=== PATIENT | male | born 1965 | race Caucasian/White ===

== ENCOUNTER 2016-07-16 12:51 | Emergency (ER) | payer BC ==
[2016-07-16 13:08] LABS: Hematocrit 43.7 % (42.0-52.0); Hemoglobin 14.8 gm/dL (13.5-18.0); Mean Cell Volume 90.9 fl (78-100); Mean Corpuscular Hemoglobin 30.8 pg (27-31); Mean Corpuscular Hgb Conc 33.9 g/dl (32-36); Neutrophil # 7.7 K/mm3 (1.3-6.0); Neutrophil % 59.2 % (42-75.0); Platelet Count 282 K/mm3 (150-450); Red Blood Count 4.81 M/mm3 (4.7-6.0); Red Cell Distribution Width 13.2 % (11.5-14.0)
[2016-07-16] MEDS ORDERED: ASPIRIN 81 MG TAB.CHEW PO ONE (13:09)
[2016-07-16] MEDS ORDERED: MORPHINE SULFATE 10 MG/ML SYRG IV ONE (13:10)
[2016-07-16] MEDS ORDERED: ASPIRIN 81 MG TAB.CHEW ONE (13:14)
[2016-07-16] MEDS ORDERED: MORPHINE SULFATE 10 MG/ML SYRG ONE (13:14)
[2016-07-16 13:18] LABS: INR 1.03 INR (0.90-1.10); Partial Thrombolplastin Time 31.5 Seconds (24-32); Prothrombin Time (Patient) 10.7 Seconds (9.4-11.4)
[2016-07-16] MEDS ORDERED: ONDANSETRON HCL/PF 2 MG/ML VIAL IV ONE (13:22)
--- NOTE | 2016-07-16 13:22 | ERNOTE ---
Chest Pain/Cardiac HPI Date of Service: 07/16/16 Chief Complaint: Chest Pain Time Seen by Provider: 07/16/16 13:07 Source: patient Exam Limitations: no limitations Immunizations: IMMUNIZATION HX Immunizations Up to Date Yes History of Influenza Vaccine No Hx Pneumococcal Vaccination No Allergies/Adverse Reactions: Allergies amoxicillin Allergy (Verified 07/16/16 12:55) Home Medications: HOME MEDICATIONS metFORMIN HCL [Glumetza] 500 mg PO BID 01/08/14 [Last Taken 01/08/14 06:00] Gabapentin [Neurontin] 1,000 mg PO BID 09/12/14 [Last Taken Unknown] Levofloxacin [Levaquin] 500 mg PO DAILY #10 tablet 07/16/16 [Last Taken Unknown] Narrative: Sudden onset of right sided anterior chest pain while at rest 1 hour travel pta. The pain is quite severe. It is constant. He took 1 baby aspirin at home but nothing else for pain. Not have a cardiac history. He is a one pack per day smoker. He did spend an hour and the phone with the [employer] this morning. Denies any injury. He feels unwell. No nausea or vomiting. Timing: constant Severity/Quality: moderate, pressure Location: other - right chest Chest Pain Radiation: no radiation Activities at Onset: emotional stress, rest Modifying Factors - Improves: Present: nothing Modifying Factors - Worsens: Present: nothing Nitro Today/Relief: no nitro taken today Aspirin Treatment Today: 81 mg x 1 Associated Symptoms: Present: denies symptoms Prior Chest Pain/Cardiac Workup: Reports: no prior cardiac workup Review of Systems - Review of Systems Constitutional: Present: no symptoms reported EYE: Present: no symptoms reported Respiratory: Present: no symptoms reported Cardiology: Present: chest pain Gastrointestinal/Abdominal: Present: no symptoms reported Musculoskeletal: Present: no symptoms reported Skin: Present: no symptoms reported - Patient's Past Medical History Patient History - Medical: Diabetes Type 2, Kidney stone, Other Patient History - Cardiac/Respiratory: CVA/Stroke Patient History - Cancer: No Hx of Cancer Patient History - Surgical Procedures: Other Patient History - Other: None - Social History Living Situations: home Abuse History: No History of abuse Psych History: No pertinent hx Smoking Status: Current every day smoker Alcohol Use: occasionally Drug Use: none - Immunizations Immunizations Up to Date: Yes Hx Pneumococcal Vaccination: No History of Influenza Vaccine: No Physical Exam - Physical Exam General Appearance: Present: moderate distress Eye Exam: Normal inspection: bilateral, PERRL: bilateral Neck: Present: normal inspection, supple Respiratory: Present: no respiratory distress, no accessory muscle use, lungs clear Cardiovascular/Chest: Present: regular rate, rhythm Gastrointestinal/Abdominal: Present: normal bowel sounds, nontender ED Progress - Results and Orders Patient's Lab Results:: I have reviewed the patient's lab results. - Vital Signs Patient's Vital Signs:: I have reviewed the patient's vital signs. Vital Signs: Vital Signs 07/16/16 12:52 Pulse Rate 71 Respiratory 16 Rate Blood Pressure 134/68 O2 Sat by Pulse 96 Oximetry - EKG EKG: NSR, RBBB - incomplete, other - no acute ST-T changes EKG read: Reviewed by me - X-Ray X-Ray #1 X-Ray: chest Interpretation: Reviewed by me X-ray Comments: possible infiltrate - Progress/Reassessment Chief Complaint: Chest Pain Progress:: Improved Plan - Plan Plan: Home. Rest. Levaquin. Ibuprofen. F/U 10 days. Departure - Departure Clinical Impression: Pleurisy, Right lower lobe pneumonia, Chest pain Disposition: Home self-care Condition: Good Instructions: Pleurisy, Community-Acquired Pneumonia, Adult, [id number] Additional Instructions: Follow up in 10 days. Take ibuprofen 400-600 mg 4 times per day. Finish you antibiotic. Prescriptions: Levofloxacin [Levaquin] 500 mg PO DAILY #10 tablet
[2016-07-16] MEDS ORDERED: ONDANSETRON HCL/PF 2 MG/ML VIAL ONE (13:23)
[2016-07-16 13:30] LABS: Troponin I Less than 0.017 ng/ml (0.00-0.10)
[2016-07-16 13:31] LABS: ALT 31 U/L (19-67); AST 21 U/L (0-48); Albumin * 3.7 gm/dl (3.4-5.0); Alkaline Phosphatase * 79 U/L (50-170); Anion Gap 11.7 mmol/L (6.8-13.8); BUN/Creatinine Ratio 15.1 (9.0-21.6); Bilirubin, Total 0.4 mg/dL (0.0-1.1); Blood Urea Nitrogen 16 mg/dL (6-23); Ca. Corrected For Albumin 8.8 mg/dL (8.4-10.2); Calcium * 8.9 mg/dL (7.9-10.9); Carbon Dioxide 28.8 mmol/L (24-32.6); Chloride 104 mmol/L (97-106); Glucose * 97 mg/dL (70-110); Potassium 4.5 mmol/L (3.4-4.6); Sodium 140 mmol/L (132-142); Total Protein 7.6 gm/dL (6.2-8.2)
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
[2016-07-16 15:00] VITALS: BP 133/78
[2016-07-16] MEDS ORDERED: KETOROLAC TROMETHAMINE 30 MG/ML VIAL IV ONE (15:11)
[2016-07-16] MEDS ORDERED: KETOROLAC TROMETHAMINE 30 MG/ML VIAL ONE (15:13)
[2016-07-16 15:17] LABS: Cocaine Ur Negative (NEGATIVE); Urine Barbiturate Negative (NEGATIVE); Urine Benzodiazepines Negative (NEGATIVE); Urine Opiates Positive (NEGATIVE); Urine PCP Negative (NEGATIVE); Urine THC Negative (NEGATIVE)
[2016-07-16 15:21] LABS: Urine Appearance Clear; Urine Bacteria None Seen; Urine Bilirubin Negative (NEGATIVE); Urine Blood 10 /ul (NEGATIVE); Urine Color Yellow; Urine Ketone Negative (NEGATIVE); Urine Nitrite Negative (NEGATIVE); Urine Protein Negative (NEGATIVE); Urine RBC 0-5 /hpf (0-5); Urine Urobilinogen Normal (NORMAL); Urine WBC 0-5 /hpf (0-5)
== END 2016-07-16 15:36 | disposition home or self-care (01) ==
LOC: ER 12:51
DX: R09.1 Pleurisy (principal); J18.8 Other pneumonia, unspecified organism; Z72.0 Tobacco use; R07.9 Chest pain, unspecified

== ENCOUNTER 2017-01-13 23:31 | Emergency (ER) | payer BC ==
[2017-01-14] MEDS ORDERED: HYDROmorphone HCL 1 MG/ML DISP.SYRIN SC ONE (00:02)
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
[2017-01-14] MEDS ORDERED: HYDROmorphone HCL 1 MG/ML DISP.SYRIN ONE (00:44)
[2017-01-14 02:09] VITALS: BP 121/88
== END 2017-01-14 01:45 | disposition home or self-care (01) ==
LOC: ER 23:31
DX: S20.212A Contusion of left front wall of thorax, initial encounter (principal); S20.211A Contusion of right front wall of thorax, initial encounter; V00.131A Fall from skateboard, initial encounter; E11.9 Type 2 diabetes mellitus without complications; Z87.442 Personal history of urinary calculi

== ENCOUNTER 2019-02-04 21:44 | Observation (INO) ==
[2019-02-04] MEDS ORDERED: NORMAL SALINE 1,000 ML IV ONE (21:52)
[2019-02-04 22:07] LABS: Hematocrit 45.5 % (42.0-52.0); Hemoglobin 15.8 gm/dL (13.5-18.0); Mean Cell Volume 93.4 fl (78-100); Mean Corpuscular Hemoglobin 32.4 pg (27-31); Mean Corpuscular Hgb Conc 34.7 g/dl (32-36); Neutrophil # 4.9 K/mm3 (1.3-6.0); Neutrophil % 42.8 % (42-75.0); Platelet Count 284 K/mm3 (150-450); Red Blood Count 4.87 M/mm3 (4.7-6.0); Red Cell Distribution Width 13.1 % (11.5-14.0); White Blood Count 11.5 K/mm3 (4.0-10.5)
[2019-02-04 22:20] LABS: Prothrombin Time (Patient) 10.4 Seconds (9.1-10.7)
[2019-02-04 22:22] LABS: INR 1.05 INR (0.92-1.08); Partial Thrombolplastin Time 27.6 Seconds (24-32)
--- NOTE | 2019-02-04 22:26 | ERNOTE ---
Neuro HPI ER Record Date of Service: 02/04/19 Presenting Symptoms: weakness, numbness, parasthesia, facial droop, difficulty walking Time Seen by Provider: 02/04/19 21:49 Source: patient Exam Limitations: no limitations Immunizations: IMMUNIZATION HX Immunizations Up to Date Yes History of Influenza Vaccine No Hx Pneumococcal Vaccination No Allergies/Adverse Reactions: Allergies Allergy/AdvReac Type Severity Reaction Status Date / Time amoxicillin Allergy Verified 01/13/17 23:54 Home Medications: HOME MEDICATIONS metFORMIN HCL [Glumetza] 500 mg PO BID 01/08/14 [Last Taken 01/08/14 06:00] Gabapentin [Neurontin] 1,000 mg PO BID 09/12/14 [Last Taken Unknown] HYDROcodone/ACETAMINOPHEN [Ray 5-325] 1 each PO Q4H PRN #25 tablet 01/14/17 [Last Taken Unknown] Atorvastatin Calcium 80 mg PO DAILY 02/04/19 [Last Taken Unknown] Clopidogrel Bisulfate [Clopidogrel] 75 mg PO DAILY 02/04/19 [Last Taken Unknown] Levothyroxine Sodium [Synthroid] 25 mcg PO DAILY 02/04/19 [Last Taken Unknown] Propranolol HCl 80 mg PO BID 02/04/19 [Last Taken Unknown] - History of Present Illness Narrative: 53-year-old male states about 1 hour ago his dog came over and nudged him while he was a sleep and he felt numbness and tingling to the left side of his face arms and legs he had noticed his speech was a little thick and that he was having difficulty moving his arm and legs patient has a history of a CVA in 2015 had a reoccurrence in 2016 for which she was given TPA at the time he arrived to the emergency room with a left distinct left facial droop pupils are pinpoint. Taken a hydrocodone few hours ago for body pain he was also holding his left arm and slightly retracted position Date (Duration): 02/04/19 Time (Timing): 21:00 Last Date Known Well: 02/04/19 Last Time Known Well: 18:30 Onset: upon waking, >3 hours Severity: moderate - Character of Deficits New weakness: Present: LUE, LLE, facial (lt) Altered sensation: Present: LUE, LLE, facial (lt) Additional Deficits: Present: impaired speech, decrease ability to stand, decrease ability to walk, off balance, cannot walk. Absent: vision problems, difficulty swallowing Baseline Cognition: Present: alert, oriented x 4 Baseline Gait: Present: walks w/o assistance Associated Symptoms: Denies: fever/chills, sweating, seizure, trouble concentrating Review of Systems - Review of Systems Constitutional: Present: no symptoms reported EYE: Present: no symptoms reported ENT: Present: no symptoms reported Respiratory: Present: no symptoms reported Cardiology: Present: no symptoms reported Gastrointestinal/Abdominal: Present: no symptoms reported Genitourinary: Present: no symptoms reported Musculoskeletal: Present: back pain, joint pain Skin: Present: no symptoms reported Neurological: Present: other - Prior stroke to the right side has neuro pain from massive trauma from the Endocrine: Present: no symptoms reported Hematologic/Lymphatic: Present: no symptoms reported Psych: Present: no symptoms reported All Other Systems: All systems neg except as marked Medical History (Last Updated 02/04/19 @ 22:20 by Violeta Aviles) Diabetes Hyperlipidemia Hypertension Hypothyroid Neurogenic pain Post traumatic stress disorder (PTSD) Stroke Surgical History: Surgical History (Last Updated 02/04/19 @ 22:20 by Violeta Aviles) Hx of pelvic surgery Hx of spinal surgery Social History: (Last Updated 02/04/19 @ 22:12 by Violeta Aviles) Social History: adopted: No foster care: No long term: No lives independently: Yes number of children: 5 parent marital status: Service: Yes Service comment: [employer]: [employer] status: retired Tobacco: Smoking Status: Current every day smoker Alcohol: alcohol intake: former Substance Use: substance use type: does not use Physical Exam - Physical Exam General Appearance: Present: wd/wn, alert, moderate distress Head Exam: Present: normal inspection Eye Exam: Normal inspection: bilateral, PERRL: bilateral - Pupils pinpoint, EOMI: bilateral Ears, Nose, Throat: Present: normal ENT inspection Neck: Present: normal inspection Respiratory: Present: no respiratory distress Cardiovascular/Chest: Present: regular rate, rhythm Peripheral Pulses: N=norm/S=strong/W=weak/B=bound/A=absent: Carotid (R): Normal, Carotid (L): Normal Gastrointestinal/Abdominal: Present: normal bowel sounds Back Exam: Present: normal inspection Extremity Exam: Present: normal inspection Neurological Exam: Present: alert, oriented, normal mood/affect, facial droop, motor weakness, other. Absent: endoscope technician II-XII nml as tested Skin Exam: Present: normal color, warm/dry Lymphatic Exam: Present: no adenopathy Jackson Coma Scale - Assess Eye Opening: Spontaneous Motor: Obeys Commands Verbal: Oriented - Total Coma Scale Total: 15 Initial Stroke Assessment - Date/Time of assessment Stroke Scale Date: 02/04/19 Stroke Scale Time: 22:11 - NIH Stroke Scale Level of Consciousness: Alert LOC Questions (Year and Age): Answers both correctly LOC Commands (open/close eyes/fist): Performs both correctly Lateral Gaze Paresis: None Visual Field Loss: No visual loss Facial Palsy: Partial facial paralysis Right Arm Motor (10 sec hold): No drift Left Arm Motor (10 sec hold): Drift, effort made Right Leg Motor (5 sec hold): No drift Left Leg Motor (5 sec hold): Drift, effort made Limb Ataxia (finger/nose heel/[place]): Present in 2 limbs If present, ataxia in:: Left arm, Left leg Sensory Loss (pinprick arms/legs/face): Mild, aware yet dulled Language Aphasia (description/naming/reading): Mild, yet understandable Dysarthria (speech clarity): Slurring, intelligeble Neglect Inattention (visual/tactile/auditory/spatial/person): No neglect Initial Stroke Scale Score:: 11 - Stroke Risk Assessment Stroke Risk Assessment Level: 5-15 Mild-Mod Severe Imp Stroke Inclusion/Exclusion Cri - Inclusion Questions: Yes Onset of symptoms <3 1/2 hours of admission to ETC: Yes - B Exclusion (Must answwer No to meet): No - Exclusion Questions: Major symptoms rapidly improving: No Seizure at onset of stroke: No SBP>185; DBP>110 at time treatment is to begin: No Patient received Heparin or Coumadin within 48 hours: No Patient has elevated PTT or Protime/INR: No Stroke, head injury, major surgery, serious trauma in 3 mon.: No Previous intracranial hemmorhage: No Recent LA: No Known AV malformation or aneurysm: No Blood glucose <50mg/dl or >400mg/dl: No NIHSS Score <4 or >22 performed by physician: No - Total NIHSS Score Score:: 11 Secondary Stroke Assessment - Date/Time of assessment Stroke Scale Time: 22:24 - NIH Stroke Scale Level of Consciousness: Alert LOC Questions (Year and Age): Answers both correctly LOC Commands (open/close eyes/fist): Performs both correctly Lateral Gaze Paresis: None Visual Field Loss: No visual loss Facial Palsy: Minor paralysis Right Arm Motor (10 sec hold): No drift Left Arm Motor (10 sec hold): No drift Right Leg Motor (5 sec hold): No drift Left Leg Motor (5 sec hold): No drift Limb Ataxia (finger/nose heel/[place]): Absent Sensory Loss (pinprick arms/legs/face): No sensory loss Language Aphasia (description/naming/reading): Mild, yet understandable Dysarthria (speech clarity): Normal articulation Neglect Inattention (visual/tactile/auditory/spatial/person): No neglect Secondary Stroke Scale Total:: 2 - Results of Tests Evidence of acute intracranial bleed: No Evidence of acute ischemic stroke: Yes CT result is negative: Yes Platelets >100,000/ Hemogram normal: Yes PT<15 or INR <1.7: Yes PTT normal: Yes - TPA Decision Repeat NIHSS scale per ERP: Yes Onset of symptoms & inclusion/exclusion reviewed: Yes Phoned stroke team & permission to proceed given: Yes Is TPA administration indicated?: No - Out of the window Benefits & risks of TPA administration explained: No Permission for TPA administration obtained: No Reasons for not ordering/administering TPA: Drug Allergy Progress - Vital Signs Patient's Vital Signs:: I have reviewed the patient's vital signs. Vital Signs: Vital Signs 02/04/19 21:54 02/04/19 21:56 Temperature 36.5 C Pulse Rate 67 66 Respiratory Rate 16 Blood Pressure 129/86 O2 Sat by Pulse Oximetry 98 - EKG EKG #1 EKG read: Interp. by me EKG Comments: EKG heart rate 63 sinus rhythm right bundle branch block no change when compared to 07/16/2016 - X-Ray X-Ray #1 X-Ray: chest Interpretation: Interp. by me X-ray Comments: No acute disease when compared to prior - CT/Ultrasound CT/Ultrasound Narrative: CT shows no acute intracranial process - Progress/Reassessment Chief Complaint: CerebroVascular Accident Plan - Plan Plan: Spoke with [facility] stroke team Dr. Barrow since patient is out of the window and they know this patient from past strokes would like the patient kept overnight and an MRI done in the morning he is to stay on his Plavix and if anything shows on the MRI he will be transferred to [facility] Dr. González [place] is accepted the patient for admission Departure Clinical Impression: CVA (cerebral vascular accident) - Departure Disposition: Short Term Hospital Inpatient Condition: Stable
[2019-02-04 22:30] LABS: ALT 27 U/L (19-67); Albumin * 3.5 gm/dl (3.4-5.0); Alkaline Phosphatase * 90 U/L (50-170); Anion Gap 12.2 mmol/L (6.8-13.8); BNP * 144 pg/mL (5-140); BUN/Creatinine Ratio 13.7 (9.0-21.6); Bilirubin, Total 0.3 mg/dL (0.0-1.1); Blood Urea Nitrogen 17 mg/dL (6-23); Ca. Corrected For Albumin 8.7 mg/dL (8.4-10.2); Calcium * 8.6 mg/dL (7.9-10.9); Carbon Dioxide 27.4 mmol/L (24-32.6); Chloride 102 mmol/L (97-106); Glucose * 104 mg/dL (70-110); Potassium 3.6 mmol/L (3.4-4.6); Sodium 138 mmol/L (132-142); Total Protein 7.1 gm/dL (6.2-8.2)
[2019-02-04 22:31] LABS: Troponin I Less than 0.017 ng/mL (0.00-0.10)
[2019-02-04 22:59] LABS: AST 19 U/L (0-48)
[2019-02-04] MEDS ORDERED: ACETAMINOPHEN 325 MG TABLET PO PRN (23:22)
[2019-02-04] MEDS ORDERED: HYDROcodone/ACETAMINOPHEN 1 EACH TABLET PO PRN (23:23)
[2019-02-04] MEDS ORDERED: FAMOTIDINE 20 MG in DEXTROSE 5 % IN WATER 100 ML IV SCH ×2 (23:30)
--- NOTE | 2019-02-04 23:56 | HP ---
Chief Complaint - Chief Complaint Date of Service: 02/04/19 Time of Service: 23:44 Chief Complaint: I have left sided numbness and tingling History of Present Illness: 53-year-old male with past medical history of old CVA in 2015 and recurrence in 2016, type 2 diabetes, generalized neuropathic pain, hyperlipidemia, PTSD, nicotine dependence was evaluated in the ER due to left- sided numbness of his face and upper and lower extremities that started this evening around 630 shortly after the patient had dinner. Patient reports after eating dinner he became very groggy and suspected that his blood pressure was low so he went to lay down, he says as soon as he laid down he fell asleep. He was awakened by his service dog which nudged him and tried to arouse him due to sensing that something was wrong with the patient, when the patient did not respond to the service dog the dog nicked him on his upper extremity indicating the next level of alert. Patient's then went to his bedside and noticed that the patient was weak on the left side of his body and had mildly slurred speech. She then called EMS who brought the patient to the hospital. Patient had 2 previous strokes several years ago that left him with initially right- sided hemiparesis then on the second stroke left-sided paresis, he was able to regain his strength and recuperate from his symptoms with rehabilitation. Since then he has been taking Plavix for anticoagulation. ER physicians contacted the [facility] where the patient is known for his previous strokes, after reviewing the imaging it was determined that the patient was outside of the window for TPA so they recommended that the patient stay here overnight and undergo an MRI of his brain in the morning. In the meantime he is to remain on Plavix. Medical History (Last Updated 02/04/19 @ 22:20 by Violeta Aviles) Diabetes Hyperlipidemia Hypertension Hypothyroid Neurogenic pain Post traumatic stress disorder (PTSD) Stroke Surgical History: Surgical History (Last Updated 02/04/19 @ 22:20 by Violeta Aviles) Hx of pelvic surgery Hx of spinal surgery Social History: (Last Updated 02/04/19 @ 22:12 by Violeta Aviles) Social History: adopted: No foster care: No fpc: No lives independently: Yes number of children: 5 parent marital status: Service: Yes Service comment: [employer]: [employer] status: retired Tobacco: Smoking Status: Current every day smoker Alcohol: alcohol intake: former Substance Use: substance use type: does not use Peds Patient Hx - Developmental: No Pertinent Hx Peds Patient Hx - Medical: No Pertinent Hx Peds Patient Hx - Cardiac/Respiratory: No Pertinent Hx Peds Patient Hx - Surgical: No Surgical History Patient History - Cancer: No Hx of Cancer Review Of Systems (GEN) - Review of Systems Generalized/Overall Review: Present: Weakness EENTM: Present: No Symptoms Reported Respiratory: Present: No Symptoms Reported Cardiac: Present: No Symptoms Reported Abdominal: Present: No Symptoms Reported Genitourinary: Present: No Symptoms Reported Musculoskeletal: Present: No Symptoms Reported Neurological: Present: Numbness, Parasthesia, Weakness Skin: Present: No Symptoms Reported Endocrine: Present: No Symptoms Reported Immunizations: IMMUNIZATION HX Immunizations Up to Date Yes History of Influenza Vaccine No Hx Pneumococcal Vaccination No Allergies/Adverse Reactions: Allergies Allergy/AdvReac Type Severity Reaction Status Date / Time amoxicillin Allergy Verified 01/13/17 23:54 Home Medications: HOME MEDICATIONS metFORMIN HCL [Glumetza] 500 mg PO BID 01/08/14 [Last Taken 01/08/14 06:00] Gabapentin [Neurontin] 1,000 mg PO BID 09/12/14 [Last Taken Unknown] HYDROcodone/ACETAMINOPHEN [[place] 5-325] 1 each PO Q4H PRN #25 tablet 01/14/17 [Last Taken Unknown] Atorvastatin Calcium 80 mg PO DAILY 02/04/19 [Last Taken Unknown] Clopidogrel Bisulfate [Clopidogrel] 75 mg PO DAILY 02/04/19 [Last Taken Unknown] Levothyroxine Sodium [Synthroid] 25 mcg PO DAILY 02/04/19 [Last Taken Unknown] Propranolol HCl 80 mg PO BID 02/04/19 [Last Taken Unknown] Exam - Exam Vital Signs: Vital Signs - Last Taken Temp 36.5 C 02/04/19 21:54 Pulse 64 02/04/19 23:07 Resp 18 02/04/19 23:07 BP 125/77 02/04/19 23:07 Pulse Ox 94 02/04/19 23:07 Constitutional: Present: Alert, Oriented x3, Cooperative, Well developed, Well nourished, No distress, Middle aged ENT Exam: Present: normal ENT inspection, hearing grossly normal, pharynx normal, TMs normal Eye Exam: bilateral eye: normal inspection, PERRL, EOMI Neck: Present: non-tender, full range of motion, supple, normal inspection, trachea midline Back Exam: Present: normal inspection, no CVA tenderness, no vertebral tenderness Breasts: Present: Exam deferred Respiratory: Present: chest non-tender, lungs clear, normal breath sounds, no respiratory distress, no accessory muscle use Cardiovascular/Chest: Present: normal peripheral pulses, regular rate, rhythm, no chest tenderness, no edema, no gallop, no JVD, no murmur, no rub Peripheral Pulses: carotid (R): 3+, carotid (L): 3+, femoral (R): 3+, femoral (L): 3+ Abdomen: Present: Normal bowel sounds, soft, nontender, nondistended, no rebound tenderness, no hepatospenomegaly, no masses, obese /Rectal: Present: Exam deferred Extremity: Present: normal range of motion, non-tender, normal inspection, no pedal edema, no calf tenderness, normal capillary refill Skin Exam: Present: normal color, warm/dry, no cyanosis Lymphatic: Present: no adenopathy Neurologic: Present: barrel inspector tight II-XII nml as tested, normal cerebellar test, no motor/sensory deficits, alert, normal mood/affect, oriented x 3 Appearance: Present: appropriate appearance, appropriate insight, neat, no memory impairment Eye contact: Present: cooperative, good eye contact, normal speech Thoughts: Present: normal thought pattern, no apparent hallucination Diagnostic Studies: Abnormal Lab Results 02/04/19 02/04/19 Range/Units 22:00 22:00 WBC 11.5 H (4.0-10.5) K/mm3 MCH 32.4 H (27-31) pg Eosinophils % 8.5 H (0.0-3.0) % Lymphocytes # 4.55 H (1.5-3.5) k/mm3 Eosinophils # 1.0 H (0.0-0.7) k/mm3 B-Natriuretic Peptide 144 H (5-140) pg/mL Laboratory Results WBC 11.5 K/mm3 (4.0-10.5) H 02/04/19 22:00 RBC 4.87 M/mm3 (4.7-6.0) 02/04/19 22:00 Hgb 15.8 gm/dL (13.5-18.0) 02/04/19 22:00 Hct 45.5 % (42.0-52.0) 02/04/19 22:00 MCV 93.4 fl (78-100) 02/04/19 22:00 MCH 32.4 pg (27-31) H 02/04/19 22:00 MCHC 34.7 g/dl (32-36) 02/04/19 22:00 RDW 13.1 % (11.5-14.0) 02/04/19 22:00 Plt Count 284 K/mm3 (150-450) 02/04/19 22:00 MPV 9.0 fl (8-11.3) 02/04/19 22:00 Immature Gran % (Auto) 0.30 % (0.001-0.429) 02/04/19 22:00 Immature Gran # (Auto) 0.03 K/mm3 (0.000-0.0310) 02/04/19 22:00 Neutrophils % 42.8 % (42-75.0) 02/04/19 22:00 Lymphocytes % 39.7 % (20-51) 02/04/19 22:00 Monocytes % 8.0 % (0.0-9) 02/04/19 22:00 Eosinophils % 8.5 % (0.0-3.0) H 02/04/19 22:00 Basophils % 0.7 % (0.0-1.0) 02/04/19 22:00 Nucleated RBC % 0.0 k/mm3 (0-1) 02/04/19 22:00 Neutrophils # 4.9 K/mm3 (1.3-6.0) 02/04/19 22:00 Lymphocytes # 4.55 k/mm3 (1.5-3.5) H 02/04/19 22:00 Monocytes # 0.9 k/mm3 (0.0-1.0) 02/04/19 22:00 Eosinophils # 1.0 k/mm3 (0.0-0.7) H 02/04/19 22:00 Absolute Basophils 0.1 k/mm3 (0.0-0.1) 02/04/19 22:00 PT 10.4 Seconds (9.1-10.7) 02/04/19 22:00 INR (Anticoag Therapy) 1.05 INR (0.92-1.08) 02/04/19 22:00 PTT ([place]) 27.6 Seconds (24-32) 02/04/19 22:00 Sodium 138 mmol/L (132-142) 02/04/19 22:00 Plasma Sodium 138 mmol/L (130-142) 02/04/19 22:00 Potassium 3.6 mmol/L (3.4-4.6) 02/04/19 22:00 Chloride 102 mmol/L (97-106) 02/04/19 22:00 Carbon Dioxide 27.4 mmol/L (24-32.6) 02/04/19 22:00 Anion Gap 12.2 mmol/L (6.8-13.8) 02/04/19 22:00 BUN 17 mg/dL (6-23) 02/04/19 22:00 Creatinine 1.24 mg/dL (0.4-1.4) 02/04/19 22:00 Est GFR (Non-Af Amer) 65 mL/min (60-130) 02/04/19 22:00 BUN/Creatinine Ratio 13.7 (9.0-21.6) 02/04/19 22:00 Random Glucose 104 mg/dL (70-110) 02/04/19 22:00 Calcium 8.6 mg/dL (7.9-10.9) 02/04/19 22:00 Calcium Adj for Albumin 8.7 mg/dL (8.4-10.2) 02/04/19 22:00 Total Bilirubin 0.3 mg/dL (0.0-1.1) 02/04/19 22:00 AST 19 U/L (0-48) 02/04/19 22:00 ALT 27 U/L (19-67) 02/04/19 22:00 Alkaline Phosphatase 90 U/L (50-170) 02/04/19 22:00 Troponin I Less than 0.017 ng/mL (0.00-0.10) 02/04/19 22:00 B-Natriuretic Peptide 144 pg/mL (5-140) H 02/04/19 22:00 Total Protein 7.1 gm/dL (6.2-8.2) 02/04/19 22:00 Albumin 3.5 gm/dl (3.4-5.0) 02/04/19 22:00 Assessment/Plan - Narrative Narrative: Patient was evaluated and medical chart was reviewed and decision to admit for observation on our [facility] floor was made. Patient will be admitted with a diagnosis of rule out ischemic CVA, TIA. Brain MRI has been ordered for tomorrow morning as recommended by the [facility] stroke team, in the meantime all of the patient's routine medications have been reconciled for administration during the hospitalization. He has regained strength and his upper and lower extremities and numbness and tingling has resolved. Nicotine patches were also ordered to treat the patient's nicotine dependence with cigarettes. We will follow-up with brain MRI results and the patient in the morning. - Assessment/Plan (1) Recurrent cerebrovascular accidents (CVAs) Problem: Acute (2) TIA (transient ischemic attack) Problem: Acute (3) Nicotine dependence Problem: Chronic (4) Diabetes 1.5, managed as type 2 Problem: Chronic (5) Neuropathic pain Problem: Chronic (6) PTSD (post-traumatic stress disorder) Problem: Chronic
[2019-02-05] MEDS: NICOTINE 21 MG PATC TD SCH ×2 (01:11→08:31)
[2019-02-05] MEDS: GABAPENTIN 100 MG CAPSULE PO SCH ×2 (01:11→08:31)
[2019-02-05] MEDS: GABAPENTIN 400 MG CAPSULE PO SCH ×2 (01:11→08:31)
[2019-02-05] MEDS ORDERED: LEVOTHYROXINE SODIUM 25 MCG TABLET PO SCH (07:00)
[2019-02-05] MEDS ORDERED: metFORMIN HCL 500 MG TABLET PO SCH (09:00)
[2019-02-05] MEDS ORDERED: ASPIRIN 81 MG TAB.CHEW PO SCH (09:00)
[2019-02-05] MEDS ORDERED: ROSUVASTATIN CALCIUM 20 MG TABLET PO SCH ×2 (09:00→21:00)
[2019-02-05] MEDS ORDERED: FLU VACC QS2019-20(6MOS UP)/PF 60 MCG/0.5 ML SYRINGE IM ONE (09:00)
[2019-02-05] MEDS ORDERED: PROPRANOLOL HCL 80 MG TABLET PO SCH (09:00)
[2019-02-05] MEDS ORDERED: CLOPIDOGREL BISULFATE 75 MG TABLET PO SCH (09:00)
--- NOTE | 2019-02-05 10:39 | DS ---
(1) Recurrent cerebrovascular accidents (CVAs) Problem: Acute (2) TIA (transient ischemic attack) Problem: Acute (3) Nicotine dependence Problem: Chronic (4) Diabetes 1.5, managed as type 2 Problem: Chronic (5) Neuropathic pain Problem: Chronic (6) PTSD (post-traumatic stress disorder) Problem: Chronic Date of Discharge:: 02/05/19 Description of Stay: 53-year-old male admitted for observation of stroke symptoms that consisted of tingling and numbness and mild weakness on the left side of his face and upper and lower extremities. Patient reports the symptoms started shortly after dinner yesterday evening and did not resolved so therefore he came to the hospital. Per the recommendation of the stroke team at the [facility], patient was kept on Plavix and a brain MRI was performed this morning. Brain MRI is negative for any acute changes and his only findings were maxillary and frontal sinusitis. Patient was informed of this and when questioned he admitted that he has been having a lot of sinus congestion and drainage. Therefore decision to discharge patient with instructions to establish with a PCP and to follow-up with his neurologist was made. Patient will be discharged with a prescription for Flonase to treat his sinusitis. He also commented that his usual stomach upset/discomfort that he gets every morning will significantly improve while here at our hospital, and he wanted to know what was administered to him that caused this relief. It was explained to him that he was treated with Pepcid while in our care and a prescription for the medication will be sent to pharmacy upon discharge. Patient was also instructed to resume his routine meds especially Plavix. Procedures Performed: none Results and Findings: Lab Pending Results 02/04/19 22:00: WBC 11.5 H, RBC 4.87, Hgb 15.8, Hct 45.5, MCV 93.4, MCH 32.4 H, MCHC 34.7, RDW 13.1, Plt Count 284, MPV 9.0, Immature Gran % (Auto) 0.30, Immature Gran # (Auto) 0.03, Neutrophils % 42.8, Lymphocytes % 39.7, Monocytes % 8.0, Eosinophils % 8.5 H, Basophils % 0.7, Nucleated RBC % 0.0, Neutrophils # 4.9, Lymphocytes # 4.55 H, Monocytes # 0.9, Eosinophils # 1.0 H, Absolute Basophils 0.1 12/15/19 22:00: PT 10.4, INR (Anticoag Therapy) 1.05, PTT ([place]) 27.6 02/04/19 22:00: Sodium 138, Plasma Sodium 138, Potassium 3.6, Chloride 102, Carbon Dioxide 27.4, Anion Gap 12.2, BUN 17, Creatinine 1.24, Est GFR (Non-Af Amer) 65, BUN/Creatinine Ratio 13.7, Random Glucose 104, Calcium 8.6, Calcium Adj for Albumin 8.7, Total Bilirubin 0.3, AST 19, ALT 27, Alkaline Phosphatase 90, Troponin I Less than 0.017, B-Natriuretic Peptide 144 H, Total Protein 7.1, Albumin 3.5 Discharge Location: Home Disposition: Home self-care Condition: Stable Face to Face Encounter completed per [facility] Guidelines: No Discharge Activity: Activity as tolerated Discharge Diet: Low fat/chol Prescriptions (Any new or edited meds): Fluticasone Propionate [Flonase] 2 spray NS BID #1 inhaler Transmission Status: Pending to [facility] #[id number] Famotidine [Pepcid] 20 mg PO BID #30 tab Transmission Status: Pending to true[x] [facility] #[id number] Complete Home Medications List: Complete Home Medication List: metFORMIN HCL [Glumetza] 500 mg PO BID 01/08/14 Gabapentin [Neurontin] 500 mg PO QID 09/12/14 Atorvastatin Calcium 80 mg PO DAILY 02/04/19 Clopidogrel Bisulfate [Clopidogrel] 75 mg PO DAILY 02/04/19 Levothyroxine Sodium [Synthroid] 25 mcg PO DAILY 02/04/19 Propranolol HCl 80 mg PO BID 02/04/19 Famotidine [Pepcid] 20 mg PO BID #30 tab 02/05/19 Fluticasone Propionate [Flonase] 2 spray NS BID #1 inhaler 02/05/19 Nicotine [Nicoderm] 21 mg TD DAILY patch.[id number] 02/05/19
[2019-02-05 11:00] VITALS: BP 112/72
== END 2019-02-05 11:49 | disposition home or self-care (01) ==
LOC: ER 21:44 → MS 21:44
PROVIDERS: ADMIT Family Medicine; ATTEND Family Medicine
CPT/HCPCS: 36415; 70450; 70553; 71010; 71045; 80053; 83519; 83880; 84484; 85025; 85610; 85730; 90686; 93005; 96365; 99285; A9576; G0008; G0378